=== PATIENT | male | born 1940 | race Two or more races ===

== ENCOUNTER → 2024-08-06 | Outpatient (CLI) | payer OTHER, MEDICAID ==
[~2024-08-06] MED LIST: ALBUTEROL SULF 2.5 MG/0.5ML(0.5%) NEB SOLN ONE
== END | disposition home or self-care (01) ==
LOC: RT 08:50
PROVIDERS: ATTEND Internal Medicine Pulmonary Disease
DX: R05.3 Chronic cough (principal); R06.00 Dyspnea, unspecified
CPT/HCPCS: 94060; 94727; 94729